=== PATIENT | female | born 1965 | race Two or more races ===

== ENCOUNTER 2021-08-07 22:05 | Emergency (ER) | payer MEDICAID, OTHER ==
[~2021-08-07] VITALS: Ht 157.5 cm; Wt 90.7 kg
[2021-08-07] MEDS ORDERED: ACETAMINOPHEN 325 MG TAB PO ONE (22:45)
[2021-08-07] MEDS ORDERED: FLUORESCEIN SOD OPTH TEST STRIP EACHEYE ONE (22:45)
[2021-08-07 23:20] VITALS: BP 106/54
== END 2021-08-08 00:02 | disposition home or self-care (01) ==
LOC: ER 22:13
DX: S60.011A Contusion of right thumb without damage to nail, initial encounter (principal); E11.9 Type 2 diabetes mellitus without complications; E78.5 Hyperlipidemia, unspecified; Z90.710 Acquired absence of both cervix and uterus; W23.0XXA Caught, crushed, jammed, or pinched between moving objects, initial encounter; Y93.89 Activity, other specified; Y92.89 Other specified places as the place of occurrence of the external cause; Y99.8 Other external cause status
CPT/HCPCS: 73140

== ENCOUNTER 2022-03-11 17:59 | Emergency (ER) | payer MEDICAID ==
[~2022-03-11] VITALS: Ht 157.5 cm; Wt 87.4 kg
[2022-03-11 18:14] VITALS: BP 150/76
[2022-03-11] MEDS ORDERED: ALBUTEROL SULF 2.5 MG/0.5ML(0.5%) NEB SOLN NEB ONE (22:30)
[2022-03-11] MEDS ORDERED: HYDROcodone-ACET 5/325MG TAB PO ONE (22:30)
[2022-03-11] MEDS ORDERED: KETOROLAC TROMETH 30 MG/ML 1ML VIAL IM ONE (22:30)
[2022-03-11] MEDS ORDERED: ONDANSETRON ODT 4 MG TAB PO ONE (22:30)
[2022-03-11 23:00] LABS: Hematocrit 40.4 % (36.0-46.0); Hemoglobin 13.8 g/dL (12.2-16.2); Mean Corpuscular Hemoglobin 30.8 pg (28.0-32.0); Mean Corpuscular Hgb Conc. 34.1 g/dL (32.0-36.0); Mean Corpuscular Volume 90.3 fL (80.0-100.0); Red Blood Cells 4.48 10^6/uL (4.0-5.20); Red Cell Distribution Width 12.8 % (11.8-14.3); White Blood Cell 6.7 10^3/uL (4.4-10.8)
[2022-03-11 23:08] LABS: Band Neutrophils % (manual) 0; Basophils % (manual) 0 (0.0-2.0); Blast Cells 0; Metamyelocytes % 0; Myelocytes % 0; Promyelocytes % 0; Reactive Lymphocytes 0
[2022-03-11 23:14] LABS: Albumin 3.9 g/dL (3.4-5.0); Calcium 9.2 mg/dL (8.5-10.1); Potassium 4.4 mmol/L (3.5-5.1)
[2022-03-11 23:19] LABS: Bilirubin, Total 0.3 mg/dL (0.2-1.0); Total Protein 8.3 g/dL (6.4-8.2)
[2022-03-11 23:27] LABS: Eosinophils % (manual) 1 (0-7); Lymphocytes % (manual) 54 (10.0-50.0); Monocytes % (manual) 11 (0-12)
[2022-03-11] MEDS ORDERED: IBUP600T28 PO (23:56)
[2022-03-11] MEDS ORDERED: ALBU108A5 IN (23:56)
[2022-03-11] MEDS ORDERED: BENZ100C19 PO (23:56)
== END 2022-03-12 01:27 | disposition home or self-care (01) ==
LOC: ER 17:59
DX: R05.9 Cough, unspecified (principal); R06.02 Shortness of breath; R50.9 Fever, unspecified; E11.65 Type 2 diabetes mellitus with hyperglycemia; R53.1 Weakness; E78.5 Hyperlipidemia, unspecified; Z90.710 Acquired absence of both cervix and uterus; Z20.822 Contact with and (suspected) exposure to COVID-19
CPT/HCPCS: 36415; 71046; 80053; 85007; 85027; 87426; 87804; 93005; 96372; 99285; J1885; Q0162